=== PATIENT | female | born 1990 | race Caucasian/White ===

== ENCOUNTER 2016-11-23 13:14 | Emergency (ER) | payer OTHER ==
[~2016-11-23] VITALS: Ht 175.3 cm; Wt 113.4 kg
[~2016-11-23 13:14] MED LIST: HYDR-971 PO; ONDA4TAB10 SL
[2016-11-23 13:18] VITALS: BP 154/84
[2016-11-23] MEDS ORDERED: IBUPROFEN 800 MG TABLET. PO ONE (13:45)
--- NOTE | 2016-11-23 13:45 | PHYS DOC ---
Past Medical History Past Medical History: Asthma, Gallstones, Kidney Stone, UTI Past Surgical History: Cholecystectomy, Tubal ligation Alcohol Use: None Drug Use: Marijuana Adult General Chief Complaint Chief Complaint: FOOT INJURY PAIN HPI HPI Patient is a 26 year old female presents to the emergency department stating that she was walking off a curb when she tripped and fell. She states that she has having pain in her right foot along the fourth and fifth metatarsal area. She also states that she has pain that is radiating up into the ankle. She denies taking any medications to help with the pain or discomfort. Parent this time is no current bruising noted however there is some slight swelling noted along the fifth metatarsal area. Patient states that she has been able to ambulate since this happened around 11:30 today. Review of Systems Review of Systems Constitutional: Denies fever or chills [] Eyes: Denies change in visual acuity, redness, or eye pain [] HENT: Denies nasal congestion or sore throat [] Respiratory: Denies cough or shortness of breath [] Cardiovascular: No additional information not addressed in HPI [] GI: Denies abdominal pain, nausea, vomiting, bloody stools or diarrhea [] : Denies dysuria or hematuria [] Musculoskeletal: Denies back pain. Right ankle and right foot pain Integument: Denies rash or skin lesions [] Neurologic: Denies headache, focal weakness or sensory changes [] Endocrine: Denies polyuria or polydipsia [] Current Medications Current Medications Current Medications Medications (Trade) Dose Ordered Sig/Nayan Start Time Stop Time Status Last Admin Dose Admin Ibuprofen (Motrin) 800 mg 1X ONCE 11/23/16 13:45 11/23/16 13:46 DC 11/23/16 14:06 800 MG Allergies Allergies Allergies Coded Allergies Type Severity Reaction Last Updated Verified No Known Drug Allergies 01/21/16 No Physical Exam Physical Exam Constitutional: Well developed, well nourished, no acute distress, non-toxic appearance. [] HENT: Normocephalic, atraumatic, bilateral external ears normal, oropharynx moist, no oral exudates, nose normal. [] Eyes: PERRLA, EOMI, conjunctiva normal, no discharge. [] Neck: Normal range of motion, no tenderness, supple, no stridor. [] Cardiovascular:Heart rate regular rhythm, no murmur [] Lungs & Thorax: Bilateral breath sounds clear to auscultation [] Skin: Warm, dry, no erythema, no rash. [] Back: No tenderness Extremities: Right ankle, right foot along the fourth and fifth metatarsal tenderness, no cyanosis, no clubbing, ROM intact, no edema. Patient with good sensation noted to the toes. Patient is able to move the toes without difficulty. Peripheral pulses are 2+ cap refill brisk less than 2 seconds. Neurologic: Alert and oriented X 3, normal motor function, normal sensory function, no focal deficits noted. [] Psychologic: Affect normal, judgement normal, mood normal. [] Current Patient Data Vital Signs Vital Signs Date Time Temp Pulse Resp B/P (MAP) Pulse Ox O2 Delivery O2 Flow Rate FiO2 11/23/16 13:18 98.3 104 16 96 Room Air 98.3 EKG EKG [] Radiology/Procedures Radiology/Procedures [][address] [address] IMAGING REPORT Signed PATIENT: DERECK TELLEZ ACCOUNT: [id number] : 1990 LOCATION: ER AGE: 26 SEX: F EXAM STATUS: REG ER ORD. PHYSICIAN: BITA KAN APRN REASON: foot and ankle pain after falling over a curb PROCEDURE: ANKLE RIGHT 3V Three-view right ankle radiographs 11/23/2016 Clinical history: Twisting injury to right ankle. AP, lateral and oblique digital radiographs of the right ankle were obtained. The right ankle mortise is intact. No fracture or dislocation is seen. Impression: No fracture or dislocation of the right ankle is seen. DICTATED and SIGNED BY: YAKOV ROSA MD DATE: 11/23/16 1419 CC: BITA KAN APRN; NO PCP; NON,STAFF ~ [address] [address] IMAGING REPORT Signed PATIENT: DERECK TELLEZ ACCOUNT: [id number] : 1990 LOCATION: ER AGE: 26 SEX: F EXAM STATUS: REG ER ORD. PHYSICIAN: BITA KAN APRN REASON: foot and ankle pain after falling over a curb PROCEDURE: FOOT RIGHT 3V Three-view right foot radiographs 11/23/2016 Clinical history: Twisting injury to right foot earlier today. AP, lateral and oblique digital radiographs of the right foot were obtained. No fracture or dislocation of the right foot is seen. Mild degenerative changes are seen involving the first MTP joint. Impression: No fracture or dislocation of the right foot is seen. DICTATED and SIGNED BY: YAKOV ROSA MD DATE: 11/23/16 1420 CC: BITA KAN APRN; NO PCP; NON,STAFF ~ Course & Med Decision Making Course & Med Decision Making Pertinent Labs and Imaging studies reviewed. (See chart for details) X-rays were negative for any bony abnormalities. Patient will be placed in Ventura wrap with a postop shoe. We'll recommend for her to follow-up with orthopedic in the next week. Recommended Tylenol or ibuprofen for pain and discomfort. Patient be discharged home in stable condition. Since symptoms to return back to emergency department been provided. Patient had all her questions answered at her bedside. [] Dragon Disclaimer Dragon Disclaimer This electronic medical record was generated, in whole or in part, using a voice recognition dictation system. Departure Departure Impression: Primary Impression: Right foot pain Additional Impression: Right ankle pain Disposition: 01 HOME, SELF-CARE Condition: STABLE Referrals: NO PCP (PCP) SHANA CACERES MD Patient Instructions: Ankle Sprain, [id number], Foot Sprain-Brief Additional Instructions: Ice packs on 20 minutes off 20 minutes several times a day. Elevation as much as possible. Ventura wrap to the ankle and foot for the next 5-7 days. Wear the postop shoe for the next 7-10 days. Elevation as much as possible. Tylenol or ibuprofen for pain and discomfort. Follow-up with orthopedic in the next week. Return back to emergency prior signs symptoms of become worse. Problem Qualifiers BITA KAN APRN Nov 23, 2016 13:45
--- NOTE | 2016-11-23 14:22 | RAD ---
Three-view right ankle radiographs 11/23/2016 Clinical history: Twisting injury to right ankle. AP, lateral and oblique digital radiographs of the right ankle were obtained. The right ankle mortise is intact. No fracture or dislocation is seen. Impression: No fracture or dislocation of the right ankle is seen.
--- NOTE | 2016-11-23 14:26 | RAD ---
Three-view right foot radiographs 11/23/2016 Clinical history: Twisting injury to right foot earlier today. AP, lateral and oblique digital radiographs of the right foot were obtained. No fracture or dislocation of the right foot is seen. Mild degenerative changes are seen involving the first MTP joint. Impression: No fracture or dislocation of the right foot is seen.
== END 2016-11-23 14:49 | disposition home or self-care (01) ==
LOC: ER 13:14
DX: M25.571 Pain in right ankle and joints of right foot (principal); R22.41 Localized swelling, mass and lump, right lower limb; J45.909 Unspecified asthma, uncomplicated; Z90.49 Acquired absence of other specified parts of digestive tract; Z87.440 Personal history of urinary (tract) infections; W10.1XXA Fall (on)(from) sidewalk curb, initial encounter; Y93.01 Activity, walking, marching and hiking; Y92.89 Other specified places as the place of occurrence of the external cause; Y99.8 Other external cause status
CPT/HCPCS: 73610; 73630; 99284